=== PATIENT | male | born 1970 | race American Indian/Alaskan Native ===

== ENCOUNTER 2017-02-02 12:33 | Emergency (ER) | payer OTHER ==
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
== END 2017-02-02 14:53 | disposition home or self-care (01) ==
LOC: ED 12:33
DX: R42 Dizziness and giddiness (principal); M25.519 Pain in unspecified shoulder; J45.909 Unspecified asthma, uncomplicated
CPT/HCPCS: 70450; 99283